=== PATIENT | male | born 1980 | race Caucasian/White ===

== ENCOUNTER 2018-07-02 13:23 | Emergency (ER) | payer OTHER ==
--- NOTE | 2018-07-02 13:29 | ER Report ---
History and Physical Time Seen By MD: 13:30 (GERA ARIAS MD) HPI/ROS CHIEF COMPLAINT: Back pain HISTORY OF PRESENT ILLNESS: Patient this is a 38-year-old male who states for approximately 2 weeks he's had some right-sided flank and back pain. He states that symptoms began after "tweaking his back" while swimming. However patient states he's also noticed pain to the right flank with urination also feels as if "he is on fire when he urinates." Patient also noticed some increased urinary frequency. He denies hematuria or penile discharge. He denies any testicular p ain. Denies fevers or chills. Denies any recent sexual contacts or history of prior STD. Denies history of kidney stones. REVIEW OF SYSTEMS: Respiratory: No cough, no dyspnea. Cardiovascular: No chest pain, no palpitations. Gastrointestinal: No vomiting, no abdominal pain. Musculoskeletal: Right-sided back pain : Dysuria (GERA ARAIS MD) Allergies: Coded Allergies: acetaminophen (Verified Allergy, Unknown, 07/02/18) makes me feel word hydrocodone (Verified Allergy, Unknown, 07/02/18) makes me feel word Home Meds Active Scripts Methocarbamol (ROBAXIN-750) 750 Mg Tablet, 750 MG PO Q6H PRN for MUSCLE SPASMS, #21 TAB Prov:GARIMA FARAH V DO 07/02/18 Reported Medications Aspirin/Acetaminophen/Caffeine (EXCEDRIN EXTRA STRENGTH CAPLET) 1 Each Tablet, 1 EACH PO PRN 07/02/18 Levetiracetam (LEVETIRACETAM) 750 Mg Tablet, 750 MG PO BID, TAB 07/02/18 Past Medical/Surgical History History of tonic-clonic seizures (GERA ARIAS MD) Constitutional Vital Sign - Last 24 Hours 07/02/18 13:32 Temp 97.3 Pulse 82 Resp 18 B/P (MAP) 131/72 Pulse Ox 97 O2 Delivery Room Air (GARIMA FARAH DO) Physical Exam General appearance: alert no distress. Back: Thoracic spine has no spinal or paraspinal tenderness to palpation. Lumbar spine has no spinal tenderness moderateparaspinal tenderness Gastroinal: Abdomen is soft, non tender, no masses.. 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 Vascular: Normal capillary refill and pulses to feet. Neurological: Motor function: leg strength normal and symmetric for both legs Sensory function: normal for all leg dermatomes. Straight leg raise negative to 70 degrees. Reflexes normal bilaterally on legs. DIFFERENTIAL DIAGNOSIS: After history and physical exam differential diagnosis was considered for back pain including muscular strain, herniated disc, intra- abdominal and renal causes. (GERA ARIAS MD) Medical Decision Making Data Points Laboratory Hematology Test 07/02/18 14:52 Urine Color Straw Urine Clarity Clear Urine pH 7.0 pH (4.8-9.5) Urine Specific Rogers 1.003 Urine Protein Negative mg/dL (NEGATIVE) Urine Glucose (UA) Negative mg/dL (NEGATIVE) Urine Ketones Negative mg/dL (NEGATIVE) Urine Blood Negative (NEGATIVE) Urine Nitrite Negative (NEGATIVE) Urine Bilirubin Negative (NEGATIVE) Urine Urobilinogen Negative mg/dL (0.2-1.9) Urine Leukocyte Esterase Negative (NEGATIVE) Urine RBC None /HPF (0-2/HPF) Urine WBC None /HPF (0-5/HPF) Urine Squamous Epithelial Cells None /LPF (</=FEW) Urine Bacteria Negative /HPF (NONE-FEW) Urine Mucus None /HPF (NONE-FEW) Chemistry Test 07/02/18 14:52 Urine Color Straw Urine Clarity Clear Urine pH 7.0 pH (4.8-9.5) Urine Specific Rogers 1.003 Urine Protein Negative mg/dL (NEGATIVE) Urine Glucose (UA) Negative mg/dL (NEGATIVE) Urine Ketones Negative mg/dL (NEGATIVE) Urine Blood Negative (NEGATIVE) Urine Nitrite Negative (NEGATIVE) Urine Bilirubin Negative (NEGATIVE) Urine Urobilinogen Negative mg/dL (0.2-1.9) Urine Leukocyte Esterase Negative (NEGATIVE) Urine RBC None /HPF (0-2/HPF) Urine WBC None /HPF (0-5/HPF) Urine Squamous Epithelial Cells None /LPF (</=FEW) Urine Bacteria Negative /HPF (NONE-FEW) Urine Mucus None /HPF (NONE-FEW) Urinalysis Test 07/02/18 14:52 Urine Color Straw Urine Clarity Clear Urine pH 7.0 pH (4.8-9.5) Urine Specific Rogers 1.003 Urine Protein Negative mg/dL (NEGATIVE) Urine Glucose (UA) Negative mg/dL (NEGATIVE) Urine Ketones Negative mg/dL (NEGATIVE) Urine Blood Negative (NEGATIVE) Urine Nitrite Negative (NEGATIVE) Urine Bilirubin Negative (NEGATIVE) Urine Urobilinogen Negative mg/dL (0.2-1.9) Urine Leukocyte Esterase Negative (NEGATIVE) Urine RBC None /HPF (0-2/HPF) Urine WBC None /HPF (0-5/HPF) Urine Squamous Epithelial Cells None /LPF (</=FEW) Urine Bacteria Negative /HPF (NONE-FEW) Urine Mucus None /HPF (NONE-FEW) (GARIMA FARAH DO) ED Course/Re-evaluation ED Course 07/02/2018 2:12:39 pm After history and physical exam was performed differential diagnosis was formulated which includes but is not limited to mechanical back pain, pyelonephritis, urinary tract infection, STD, zoster. Plan at this time will be to obtain urinalysis with culture GC chlamydia will also obtain a renal ultrasound. Decision to Disposition Date: Jul 02, 2018 Decision to Disposition Time: 17:00 (GERA ARIAS MD) ED Course 07/02/2018 3:33:49 pm Pt signed out to dc pending UA and renal ultrasound. NO sign of kidney stone on study. Urine appears clean however sent for Culture. sTD cultures also pending. Will treat for muscleskeletal pain. [facility] Decision to Disposition Date: Jul 02, 2018 Decision to Disposition Time: 15:34 (GARIMA FARAH DO) Depart Departure Latest Vital Signs Vital Signs Date Time Temp Pulse Resp B/P (MAP) Pulse Ox O2 Delivery O2 Flow Rate FiO2 07/02/18 13:32 97.3 82 18 131/72 97 Room Air (GARIMA FARAH DO) Impression: Primary Impression: Back pain Additional Impression: Muscle strain Condition: Improved Disposition: HOME OR SELF-CARE New Scripts Methocarbamol (ROBAXIN-750) 750 Mg Tablet 750 MG PO Q6H PRN for MUSCLE SPASMS, #21 TAB Prov: GARIMA FARAH DO 07/02/18 Patient Instructions: Acute Low Back Pain (GEN), Muscle Spasm (ED) Additional Instructions: Your urine did not show bacteria on inital exam. We did send it for culture and if any bacteria grows we will call you and call in an antibiotic. Motrin (advil, ibuprofen) 600mg every 6 hours as needed for pain. Robaxin 750mg every 6 hours as needed for back pain and spasms. Try not to lift heavy objects while having the symptoms. Follow up with your family doctor. Return as needed. Problem Qualifiers Primary Impression: Back pain Back pain location: low back pain Chronicity: acute Back pain laterality: unspecified Sciatica presence: without sciatica Qualified Codes: M54.5 - Low back pain GERA ARIAS MD Jul 02, 2018 13:29 GARIMA FARAH DO Jul 02, 2018 15:39
[2018-07-02] MEDS ORDERED: LEVE750T48 PO (13:38)
[2018-07-02] MEDS ORDERED: ASPI1TAB35 PO (13:38)
[2018-07-02 15:00] VITALS: BP 108/72
--- NOTE | 2018-07-02 15:19 | RADIOLOGY IMAGING REPORT ---
FACILITY: [facility] - [place] PATIENT NAME: Curtis Ordaz : 1980 MR: [id number] V: [id number] EXAM DATE: ORDERING PHYSICIAN: GERA ARIAS TECHNOLOGIST: Location: [facility] [place] Patient: Curtis Ordaz : 1980 Visit/Account:[id number] Date of Sevice: 07/02/2018 Renal ultrasound Indication: Right flank pain. Comparison: None available Findings: Right kidney measures 10.5 x 5.4 x 5.1 cm in cc, AP, and transverse dimensions respectively. Left kidney measures 10.8 x 5.0 x 5.9 cm in cc, AP, and transverse dimensions respectively. There is normal echogenicity of the bilateral kidneys. No evidence of hydronephrosis or nephrolithiasis. No renal lesions. Blood flow both kidneys normal an d symmetric. The resistive index right kidney 0.59 and the left kidney 0.58. Bilateral ureteral jets were seen. Urinary bladder imaging was negative and there is moderate post void residual of 148 mL. Visualized abdominal aorta and IVC are unremarkable. IMPRESSION: 1. Normal Renal ultrasound. 2. Moderate postvoid residual in the urinary bladder. Report Dictated By: Judah Camilo at 07/02/2018 3:13 PM Report E-Signed By: Judah Camilo at 07/02/2018 3:16 PM WSN:[id number]
[2018-07-02] MEDS ORDERED: METHOCARBAMOL 500 MG TAB PO ONE (15:30)
[2018-07-02] MEDS ORDERED: IBUPROFEN 600 MG TAB PO ONE (15:30)
[2018-07-02] MEDS ORDERED: METH-543 PO (15:36)
== END 2018-07-02 15:46 | disposition home or self-care (01) ==
LOC: ER 13:30
DX: M54.5 Low back pain (principal); S39.012A Strain of muscle, fascia and tendon of lower back, initial encounter
CPT/HCPCS: 76705; 81001; 87088; 87491; 87591; 99284